=== PATIENT | female | born 1950 | race Caucasian/White ===

== ENCOUNTER 2020-09-27 19:14 | Emergency (ER) | payer BC, MEDICARE, SELFPAY ==
[2020-09-27 19:20] VITALS: BP 135/80; PULSE 87; RESP 17; TEMP 37.2; O2SAT 96; BMI 28.3
[2020-09-27 20:11] LABS: Acetaminophen < 10 ug/mL (10-30); Alanine Aminotransferase 17 IU/L (<35); Albumin 4.2 g/dL (3.5-5.0); Albumin Globulin Ratio 1.3 (1.0-2.8); Alkaline Phosphatase 75 U/L (38-126); Aspartate Aminotransferase 26 IU/L (14-36); BUN Creatinine Ratio 15.8 (6-22); Bilirubin Total 0.3 mg/dL (0.2-1.3); Blood Urea Nitrogen 12 mg/dL (7-17); Carbon Dioxide 24 mmol/L (22-32); Chloride 103 mmol/L (98-107); Estimated Glomerular Filt Rate > 60.0 mL/min (>60); Ethanol (ETOH) 61 mg/dL; Globulin 3.3 g/dL (1.7-4.1); Glucose 93 mg/dL (80-110); HEMOLYSIS < 15 (0-50); Potassium 3.7 mmol/L (3.4-5.1); Salicylate < 1.0 mg/dL (<20); Sodium 136 mmol/L (137-145); Total Protein 7.5 g/dL (6.3-8.2)
[2020-09-27 20:21] LABS: Add Manual Diff / Slide Review NO; Basophils Absolute Auto 100 /uL (0-100); Basophils Percent Auto 1.3 % (0-2); Eosinophils Absolute Auto 100 /uL (0-450); Eosinophils Percent Auto 1.1 % (2-4); Hematocrit 38.7 % (36-46); Hemoglobin 12.7 g/dL (12.0-16.0); Lymphocytes Absolute Auto 4500 /uL (1100-4500); Lymphocytes Percent Auto 48.2 % (25-40); Mean Corpuscular Hemoglobin 29.7 PG (26-34); Monocytes Absolute Auto 500 /uL (0-900); Monocytes Percent Auto 5.5 % (3-14); Neutrophils Absolute Auto 4100 /uL (1500-7000); Neutrophils Percent Auto 43.9 % (50-75); Platelet Count 317 X10^3/uL (150-400); Red Blood Cell Count 4.29 X10^6/uL (4.0-5.2); Red Cell Distribution Width 12.9 % (11.6-14.8); White Blood Cell Count 9.3 X10^3/uL (4.5-11.0)
--- NOTE | 2020-09-27 20:28 | ED_ITS ---
HPI - Psych General Chief Complaint: Psychiatric Symptoms Stated Complaint: suicidal, cutting self Time Seen by Provider: 09/27/20 20:28 Source: patient and family Mode of arrival: Ambulatory History of Present Illness HPI Narrative: Patient is a 70-year-old female with history of alcoholism presenting is with alcohol intoxication and suicidal ideation. She has been sober off and on for the most of 10 years but recently started drinking again about 3 years ago. She was hiding it from her however over the last 1 year she has been unable to hide it in over the last 1 month it has gotten significantly worse. Patient states that she drinks from the moment she wakes up until she passes out. She says everything makes her want to drink warm. Today her is now fed up with it and she is no longer able to hide it is. She had suicidal thoughts and has been having more suicidal thoughts over the last 1 month. Today she took a serrated knife to her left wrist. She has a small superficial laceration to the left. Patient also has a history of pancreatitis. states that she has had some abdominal pain nausea vomiting over the past 5 days. She currently is not experiencing such. She also denies any his thoughts of suicide now. She is feeling better now that she is in the emergency department. complaint: suicidal ideation Related Data Allergies Allergy/AdvReac Type Severity Reaction Status Date / Time No Known Drug Allergies Allergy Verified 09/27/20 19:40 Review of Systems Review of Systems Narrative: GENERAL: Denies chills, fatigue, malaise, fever, sweats, travel HEENT: Denies sinus pain, ear pain, sore throat, difficulty swallowing, neck pain RESPIRATORY: Denies dyspnea, cough, wheezing, hemoptysis, sputum. CARDIOVASCULAR: Denies chest pain, palpitations, orthopnea, edema GASTROINTESTINAL: See HPI : Denies dysuria, frequency, incontinence, hematuria, urinary retention, flank pain. MUSCULOSKELETAL: Denies weakness, joint pain, or bony pain SKIN: No rash, no erythema, no pruritus NEUROLOGIC: Denies weakness, dizziness, headache, numbness, change in speech, confusion PSYCHIATRIC: No concerning psychosocial issues. 12 point review of systems is negative except for those stated above and HPI Patient History Social History Smoking Status: Never smoker Smoking Status: Never smoker alcohol intake frequency: 3 or more drinks per day Alcohol type: hard liquor Substance Use Type: does not use Exam Initial Vital Signs Initial Vital Signs: Vital Signs Temperature 99 F 09/27/20 19:20 Pulse Rate 87 09/27/20 19:20 Respiratory Rate 17 09/27/20 19:20 Blood Pressure 135/80 09/27/20 19:20 Pulse Oximetry 96 09/27/20 19:20 GENERAL: Alert well-appearing [age]-year-old female HEENT: Head atraumatic,EOMI, pupils reactive, face symmetric, moist mucous membranes CARDIOVASCULAR: Regular rate and rhythm without murmurs, rubs or gallops. RESPIRATORY: Breath sounds equal bilaterally, no wheezes rales or rhonchi. ABDOMEN: Soft, nontender. Normoactive bowel sounds all 4 quadrants. No guarding or rebound. EXTREMITIES: Normal range of motion, no clubbing or edema. Neurovascularly intact NEUROLOGICAL: Alert and oriented x4.Normal gait and speech. SKIN: Warm, dry, no laceration, no petechiae, no rashes or lesions. Left wrist superficial laceration scabbed over Course Orders Ordered: ED Orders 09/27/20 19:24 Consult to TRANSPORTATION AGENT - Account Contact Associate Stat 09/27/20 19:52 Acetaminophen Stat Complete Blood Count AUTO DIFF Stat Comprehensive Metabolic Panel Stat Ethanol (ETOH) Stat Free T4, Direct Thyroxine Stat Lipase Stat Salicylate Stat Thyroid Stimulating Hormone Stat 09/27/20 20:25 Urine Drug Screen, Rapid Stat 09/27/20 20:30 COVID19 -Nasal swab/Pre-Proc Stat 09/27/20 21:20 EKG-12 Lead Stat Vital Signs Vital signs: Vital Signs - 8 hr 09/28/20 00:59 Pulse Rate 88 Respiratory Rate 24 Blood Pressure 92/65 Pulse Oximetry 97 MDM - Psych Lab Data Attestation: I reviewed the patient's lab results. Result diagrams: 09/27/20 19:52 09/27/20 19:52 Labs: Lab Results 09/27/20 09/27/20 09/27/20 Range/Units 19:52 19:52 19:52 WBC 9.3 (4.5-11.0) X10^3/uL RBC 4.29 (4.0-5.2) X10^6/uL Hgb 12.7 (12.0-16.0) g/dL Hct 38.7 (36-46) % MCV 90.0 (80-100) fL MCH 29.7 (26-34) PG MCHC 33.0 (30-36) % RDW 12.9 (11.6-14.8) % Plt Count 317 (150-400) X10^3/uL Neut % (Auto) 43.9 L (50-75) % Lymph % (Auto) 48.2 H (25-40) % Gonzales % (Auto) 5.5 (3-14) % Eos % (Auto) 1.1 L (2-4) % Baso % (Auto) 1.3 (0-2) % Neut # (Auto) 4100 (0553-5362) /uL Lymph # (Auto) 4500 (1009-4934) /uL Gonzales # (Auto) 500 (0-900) /uL Eos # (Auto) 100 (0-450) /uL Baso # (Auto) 100 (0-100) /uL Sodium 136 L (137-145) mmol/L Potassium 3.7 (3.4-5.1) mmol/L Chloride 103 (98-107) mmol/L Carbon Dioxide 24 (22-32) mmol/L BUN 12 (7-17) mg/dL Creatinine 0.76 (0.52-1.04) mg/dL Estimated GFR > 60.0 (>60) mL/min BUN/Creatinine Ratio 15.8 (6-22) Glucose 93 (80-110) mg/dL Calcium 10.0 (8.4-10.2) mg/dL Total Bilirubin 0.3 (0.2-1.3) mg/dL AST 26 (14-36) IU/L ALT 17 (<35) IU/L Alkaline Phosphatase 75 (38-126) U/L Total Protein 7.5 (6.3-8.2) g/dL Albumin 4.2 (3.5-5.0) g/dL Globulin 3.3 (1.7-4.1) g/dL Albumin/Globulin Ratio 1.3 (1.0-2.8) Lipase (23-300) U/L TSH 2.12 (0.47-4.68) uIU/mL Free T4 1.12 (0.78-2.19) ng/dL Salicylates < 1.0 (<20) mg/dL U Opiates 300ng/mL cut (Negative) Ur Oxycodone Screen (Negative) Urine Methadone Screen (Negative) Acetaminophen < 10 L (10-30) ug/mL Ur Barbiturates Screen (Negative) U Tricyclic Antidepress (Negative) Ur Phencyclidine Scrn (Negative) Ur Amphetamines Screen (Negative) U Methamphetamines Scrn (Negative) Ur MDMA Scrn (Ecstasy) (Negative) U Benzodiazepines Scrn (Negative) Urine Cocaine Screen (Negative) U Marijuana (THC) Screen (Negative) Ethyl Alcohol 61 H ( - 10) mg/dL SARS-CoV-2 (PCR) (Negative) 09/27/20 09/27/20 09/27/20 Range/Units 19:52 20:25 20:30 WBC (4.5-11.0) X10^3/uL RBC (4.0-5.2) X10^6/uL Hgb (12.0-16.0) g/dL Hct (36-46) % MCV (80-100) fL MCH (26-34) PG MCHC (30-36) % RDW (11.6-14.8) % Plt Count (150-400) X10^3/uL Neut % (Auto) (50-75) % Lymph % (Auto) (25-40) % Gonzales % (Auto) (3-14) % Eos % (Auto) (2-4) % Baso % (Auto) (0-2) % Neut # (Auto) (5302-9992) /uL Lymph # (Auto) (1523-2419) /uL Gonzales # (Auto) (0-900) /uL Eos # (Auto) (0-450) /uL Baso # (Auto) (0-100) /uL Sodium (137-145) mmol/L Potassium (3.4-5.1) mmol/L Chloride (98-107) mmol/L Carbon Dioxide (22-32) mmol/L BUN (7-17) mg/dL Creatinine (0.52-1.04) mg/dL Estimated GFR (>60) mL/min BUN/Creatinine Ratio (6-22) Glucose (80-110) mg/dL Calcium (8.4-10.2) mg/dL Total Bilirubin (0.2-1.3) mg/dL AST (14-36) IU/L ALT (<35) IU/L Alkaline Phosphatase (38-126) U/L Total Protein (6.3-8.2) g/dL Albumin (3.5-5.0) g/dL Globulin (1.7-4.1) g/dL Albumin/Globulin Ratio (1.0-2.8) Lipase 529 H (23-300) U/L TSH (0.47-4.68) uIU/mL Free T4 (0.78-2.19) ng/dL Salicylates (<20) mg/dL U Opiates 300ng/mL cut Negative (Negative) Ur Oxycodone Screen Negative (Negative) Urine Methadone Screen Negative (Negative) Acetaminophen (10-30) ug/mL Ur Barbiturates Screen Negative (Negative) U Tricyclic Antidepress Negative (Negative) Ur Phencyclidine Scrn Negative (Negative) Ur Amphetamines Screen Negative (Negative) U Methamphetamines Scrn Negative (Negative) Ur MDMA Scrn (Ecstasy) Negative (Negative) U Benzodiazepines Scrn Positive H (Negative) Urine Cocaine Screen Negative (Negative) U Marijuana (THC) Screen Negative (Negative) Ethyl Alcohol ( - 10) mg/dL SARS-CoV-2 (PCR) Negative (Negative) Urine Dip Bedside Urine Glucose Negative Bedside Urine Bilirubin - Negative Bedside Urine Ketone - Negative Urine Specific Coleman 1.010 Bedside Urine Occult Blood +/- Bedside Urine pH 6 Bedside Urine Protein - Negative Bedside Urine Urobilinogen - Negative Bedside Urine Nitrite - Negative Bedside Urine Leukocytes - Negative Esterase MDM Narrative Medical decision making narrative: At this time patient is medically cleared. Having suicidal ideations and increased alcohol use . Patient is tolerating oral fluids no vomiting she also says that she has been having diarrhea as well. Vomiting and diarrhea more consistent with gastroenteritis than chronic pancreatitis. Lipase is mildly elevated but she really has no abdominal pain in the emergency department I do not believe this to be clinically relevant. She certainly is at risk for chronic pancreatitis with chronic alcohol use. Social Work has been in to evaluate. She has been accepted at [facility] Discharge Plan Departure Patient Disposition: Xfer Psychiatric Hosp Clinical Impression: Suicidal ideation, Alcohol abuse
--- NOTE | 2020-09-27 20:30 | PC.NURSE ---
Krebs,snacks,water and juice given to pt. Warm blanket given.
--- NOTE | 2020-09-27 20:32 | PC.NURSE ---
Pt ok with spouse to be present. Spouse in room at this time.
[2020-09-27 20:36] LABS: UR Morphine/Opiate cutoff 300 Negative (Negative); Ur Creatinine Normal (Normal); Ur Specific Gravity Normal (Normal); Urine Amphetamines Negative (Negative); Urine Barbiturates Negative (Negative); Urine Benzodiazepines Positive (Negative); Urine Cocaine Negative (Negative); Urine MDMA Negative (Negative); Urine Methamphetamines Negative (Negative); Urine Phencyclidine Negative (Negative); Urine Tetrahydrocannabinol Negative (Negative); Urine pH Normal (Normal)
[2020-09-27 20:37] LABS: Free T4, Direct Thyroxine 1.12 ng/dL (0.78-2.19)
[2020-09-27 20:37] LABS: Urine Methadone Negative (Negative); Urine Oxycodone Negative (Negative); Urine Tricyclic Antidepressant Negative (Negative)
[2020-09-27 20:49] LABS: COVID19 -Nasal RAPID Negative (Negative)
[2020-09-27 20:51] LABS: Thyroid Stimulating Hormone 2.12 uIU/mL (0.47-4.68)
[2020-09-27 20:55] LABS: Lipase 529 U/L (23-300)
--- NOTE | 2020-09-27 21:15 | CM.SWNOTE ---
CLUBHOUSE MANAGER - Market Manager Assessment CLUBHOUSE MANAGER - Market Manager Assessment Start: 09/27/20 20:50 Freq: Status: Active Protocol: Document 09/27/20 20:50 LN (Rec: 09/27/20 21:15 LN [id number]) CLUBHOUSE MANAGER/Market Manager Assessment Time Spent with Patient Start date 09/27/20 Visit Start Time 19:35 End date 09/27/20 Visit End Time 20:40 Total time Care Management spent on 65 patient visit-in minutes Mental Health Screening Include Onset, Duration, Intensity Presenting Problem Patient presents to the ED withdrawing from ETOH and after SA cutting self on wrist with intent to kill self Precipitating Event(s) Patient reports she hates self , hates her job, and cannot stop drinking Patient Strengths Patient is open to treatment and shows insight Current Behavioral Health Provider(s) Patient states she does not Include Facility, Provider, Ph. # have a current provider but is looking for one through her EAP program at work to address SARKIS and MH Psych. Hx Mental Health and Chemical Patient endorses she is Dependency prescribed antidepressants for depression Patient uses ETOH and narcotics Family Hx of Behavioral Abuse Patient and endorse dysfunctional family/ upbringing as child. Psychiatric Hospitalizations (date(s)/ Patient states she was location) hospitalized 3 times when she was younger thirty years ago in [place] and was tied down by leather restraints Psychosocial information & Support Patient is 70 y/o female who Systems resides on [address] when she is not working and in [place] [facility] [place] when she works. Patient has supportive , daughter, family members and friends. 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 Patient discusses senior care in her near critical access hospital and states she is tired of working. Substance Abuse Screening Include Onset, Duration, Intensity Presenting Problem Patient presents to the ED withdrawing from ETOH and after SA cutting self on wrist with intent to kill self Precipitating Event(s) Patient reports she hates self , hates her job, and cannot stop drinking Rehab Facilities? ((Date(s), Location(s) Patient states she went to ) [facility] in [place], [place] 3 years ago and prior to that went to [facility] in [place], [place] twice prior to that History of Withdrawal? Seizures? Patient endorses withdrawal symptoms of shakes and getting ill but denies seizures Longest Period of Sobriety 10 years Legal Concerns Legal Matters - Outstanding Issues None reported Mental Status Orientation (Person/Place/Time) A/Ox4 Stated Mood really fucked up right now Affect (Congruent with Mood?) dysphoric, full range, congruent with mood Thought Content - Specify/Describe Patient denies obsessions, Obsessions, Delusions, Hallucinations delusions, paranoia and hallucinations Thought Processes (Tunipqs-Bnkauias-Mprn circumstantial Fqrqocjv-Geidxzxf-Yoklfkoots- Oupudvvdtmsxym-Yulrsdb-Qxakrhwbdxkq- Thought Blocking) Speech (Phwkyz-Trsx-Ztjigbm-Rapid-Soft- normal Loud-Pressured) Motor (Jysabe-Kyguvkcdr-Zkys-Other) normal, not formally assessed Insight (Qtyx-Kebm-Tlvk/Limited) Fair Judgement (Upye-Rkna-Rsiw/Limited) Poor/limited Impulse Control (Adequate-Impaired) Adequate during assessment Memory (Gkqegqcuu-Lgcwwo-Yqhkxf, Intact Impaired-Intact) Concentration (Intact-Impaired) Intact Attention (Intact-Impaired) Intact Behavior (Appropriate-Inappropriate) Appropriate Risk Assessment Suicidal Ideation (Plan) Yes Homicidal Ideation (Plan) No Comment Patient denies HI. Patient endorses ongoing SI and presents to this ED after SA. Patient endorses ways and means, patient cut wrist with intent to puncture her vein and bleed out. Patient reports SI with intent to cut self a few days ago as well. Intervention Intervention CLUBHOUSE MANAGER enters room and meets with patient and . Patient provides consent for to be present. Patient states she can't quit drinking and has been suicidal for a while. Patient states that she drinks 6-8 drink/shots/airplane bottles of hard liquor a day. Patient states today she had 6 shots of whiskey and a hard root beer, patient states she typically drinks 6-8 airplane bottles of vodka each day. Patient endorses she started drinking when she was a youth and has been struggling with addiction throughout her life. Patient endorses that she has been trying to hide her drinking for the last year and relapsed two years ago. Patient presents as emotional discussing her SI and SARKIS. reports concern of patient being a danger to herself and patient drives under the influence. Patient endorses that she wants to seek treatment. CLUBHOUSE MANAGER discusses dual diagnosis inpatient programs and detox, and medical clearance. Patient states that she was hospitalized for pancreatitis 2 weeks ago. Patient is agreeable to voluntary inpatient behavioral health hospitalization at a dual diagnosis program. CLUBHOUSE MANAGER calls [facility] and it is reported that they have beds available. It is the opinion of this CLUBHOUSE MANAGER that it is appropriate for patient to receive inpatient dual diagnosis hospitalization . CLUBHOUSE MANAGER reviews the above with LEXIS Vyas and ED Provider Dr. Almaguer and both indicate agreement and understanding. Plan RA Plan CLUBHOUSE MANAGER to seek inpatient dual diagnosis inpatient hospitalization when patient is medically clear HALIMA Hollingsworth
[2020-09-28 00:59] VITALS: BP 92/65; PULSE 88; RESP 24; O2SAT 97
--- NOTE | 2020-09-28 14:26 | CM.SWNOTE ---
ROOFING CONTRACTOR Note Patient was transferred to [facility] dual dx treatment unit last night. Last evening ROOFING CONTRACTOR discussed with patient and the option of detox in [place] and the dual diagnosis program at [facility]. ROOFING CONTRACTOR provided information from the website to patient and and they choose to proceed with the bed available at [facility] in this unit. Patient's calls ROOFING CONTRACTOR reports concern that the treatment facility is not treating patient's patient's detox or SARKIS. ROOFING CONTRACTOR discusses the option if patient is not receiving the care she wants and needs she can be d/c'd and take her to detox. Patient's hangs up on ROOFING CONTRACTOR and proceeds to express his frustration with derogatory language. ROOFING CONTRACTOR calls [facility] dual dx unit and it is reported that patient is there and detoxing with med management and treatment goal planning. ROOFING CONTRACTOR informs staff that is upset about patient's treatment and detox regarding patient's SARKIS. ROOFING CONTRACTOR calls back patient's [employer] ( Ph. # [phone]) in efforts to inform of conversation ROOFING CONTRACTOR had with [facility]. Patient continues to call [facility] staff and ROOFING CONTRACTOR incompetent and states that he thought patient would receive alcohol treatment. ROOFING CONTRACTOR confirms that [facility] is a [facility] and this unit focuses on dual dx. Patient states he will take patient to another treatment facility and proceeds to hang up the phone. Misti John MSW
== END 2020-09-28 01:05 ==
PROVIDERS: Emergency Provider Emergency Medicine
DX: R45.851 Suicidal ideations (principal); F10.10 Alcohol abuse, uncomplicated; Y90.3 Blood alcohol level of 60-79 mg/100 ml; Z20.822 Contact with and (suspected) exposure to COVID-19
CPT/HCPCS: 36415; 80053; 80305; 80320; 80329; 81003; 83690; 84439; 84443; 85025; 87635; 93005; 93010; 99284; C9803; G0480

== ENCOUNTER 2021-02-15 14:06 | Emergency (ER) | payer OTHER, MEDICARE, SELFPAY ==
[2021-02-15 14:54] VITALS: BP 126/78; PULSE 93; RESP 18; TEMP 36.4; O2SAT 99; BMI 28.3
[2021-02-15 15:05] LABS: UR Morphine/Opiate cutoff 300 Negative (Negative); Ur Creatinine Normal (Normal); Ur Specific Gravity Normal (Normal); Urine Amphetamines Negative (Negative); Urine Barbiturates Negative (Negative); Urine Benzodiazepines Positive (Negative); Urine Cocaine Negative (Negative); Urine MDMA Negative (Negative); Urine Methadone Negative (Negative); Urine Methamphetamines Negative (Negative); Urine Oxycodone Negative (Negative); Urine Phencyclidine Negative (Negative); Urine Tetrahydrocannabinol Negative (Negative); Urine Tricyclic Antidepressant Negative (Negative); Urine pH Normal (Normal)
--- NOTE | 2021-02-15 15:13 | PC.NURSE ---
pt reports she sliced her wrist with a knife before and had in patient treatment for her alcoholism. she is being seen at [facility],.
[2021-02-15 15:25] LABS: COVID19 -Nasal RAPID Negative (Negative)
[2021-02-15 15:36] LABS: Bacteria Urine Many (>30); Culture Indicated Urine Specimen Cultured; RBC Urine 0-1/HPF (0-5/HPF); WBC Urine 5-10/HPF (0-5/HPF)
[2021-02-15 16:00] LABS: Add Manual Diff / Slide Review NO; Basophils Absolute Auto 100 /uL (0-100); Eosinophils Absolute Auto 100 /uL (0-450); Eosinophils Percent Auto 0.8 % (2-4); Hematocrit 37.3 % (36-46); Hemoglobin 12.4 g/dL (12.0-16.0); Lymphocytes Absolute Auto 2700 /uL (1100-4500); Lymphocytes Percent Auto 32.2 % (25-40); Mean Corpuscular HGB Conc 33.2 % (30-36); Mean Corpuscular Hemoglobin 29.5 PG (26-34); Mean Corpuscular Volume 88.7 fL (80-100); Monocytes Absolute Auto 400 /uL (0-900); Monocytes Percent Auto 5.1 % (3-14); Neutrophils Absolute Auto 5000 /uL (1500-7000); Neutrophils Percent Auto 60.9 % (50-75); Platelet Count 283 X10^3/uL (150-400); Red Blood Cell Count 4.21 X10^6/uL (4.0-5.2); White Blood Cell Count 8.3 X10^3/uL (4.5-11.0)
[2021-02-15 16:17] LABS: Acetaminophen < 10 ug/mL (10-30); Alanine Aminotransferase 13 IU/L (<35); Albumin 4.1 g/dL (3.5-5.0); Albumin Globulin Ratio 1.3 (1.0-2.8); Alkaline Phosphatase 67 U/L (38-126); Aspartate Aminotransferase 24 IU/L (14-36); Bilirubin Total 0.3 mg/dL (0.2-1.3); Blood Urea Nitrogen 16 mg/dL (7-17); Calcium 9.4 mg/dL (8.4-10.2); Carbon Dioxide 27 mmol/L (22-32); Chloride 103 mmol/L (98-107); Estimated Glomerular Filt Rate > 60.0 mL/min (>60); Ethanol (ETOH) 90 mg/dL; Globulin 3.1 g/dL (1.7-4.1); Glucose 93 mg/dL (80-110); HEMOLYSIS < 15 (0-50); Potassium 4.3 mmol/L (3.4-5.1); Salicylate < 1.0 mg/dL (<20); Sodium 138 mmol/L (137-145); Total Protein 7.2 g/dL (6.3-8.2)
[2021-02-15 16:47] LABS: Thyroid Stimulating Hormone 0.846 uIU/mL (0.47-4.68)
--- NOTE | 2021-02-15 17:00 | PC.NURSE ---
pt appears asleep
--- NOTE | 2021-02-15 17:15 | PC.NURSE ---
pt appears asleep, at bedside
--- NOTE | 2021-02-15 17:16 | PC.NURSE ---
ER at bedside, pt marizol
--- NOTE | 2021-02-15 17:23 | ED_ITS ---
HPI - General Adult General Chief complaint: Toxicology Problem Stated complaint: Mental Health Crisis Time Seen by Provider: 02/15/21 15:00 Source: patient Mode of arrival: Family Vehicle Limitations: no limitations History of Present Illness HPI narrative: Patient is a 70-year-old female. Is here with her . Arrived by private vehicle. Is reported by the patient's that she has had a longstanding history of alcohol abuse. Has been in rehab in the past. There was reported that the patient has been drinking today. She states that she becomes very depressed when her finds out that she has been drinking. She did take more than the normal amount of Ativan earlier today. Per her she has been making comments about just going to sleep and not waking up. She has also had a recent stressor of a diagnosis of what is most likely metastatic breast cancer. She is being followed by Oncology for this. Is not currently under treatment is it is still in the diagnosis phase. Upon my evaluation patient denies suicidal ideation. Patient does not want admitted to the hospital. Related Data Allergies Allergy/AdvReac Type Severity Reaction Status Date / Time No Known Drug Allergies Allergy Verified 09/27/20 19:40 Review of Systems Constitutional Constitutional: Denies fever(s) and Denies headache(s) ENT Ears, Nose, Mouth, and Throat: Denies headache(s) Cardiovascular Cardiovascular: Reports system reviewed and no additional complaints, except as documented Respiratory Respiratory: Reports system reviewed and no additional complaints, except as documented Gastrointestinal Gastrointestinal: Reports system reviewed and no additional complaints, except as documented Integumentary/Breasts Skin/Breast: Reports system reviewed and no additional complaints, except as documented Neurologic Neurologic: Denies headache(s) Psychiatric Psychiatric: Reports system reviewed and no additional complaints, except as documented and Reports as per HPI Hematologic/Lymphatic On Anticoagulants: No Patient History Medical History Alcohol abuse Social History Smoking Status: Never smoker Smoking Status: Never smoker alcohol intake frequency: 3 or more drinks per day Alcohol type: hard liquor Substance Use Type: does not use Exam Initial Vital Signs Initial Vital Signs: Vital Signs Temperature 97.6 F 02/15/21 14:54 Pulse Rate 93 H 02/15/21 14:54 Respiratory Rate 18 02/15/21 14:54 Blood Pressure 126/78 02/15/21 14:54 Pulse Oximetry 99 02/15/21 14:54 Const General: cooperative, healthy appearing, comfortable and well developed [facility] Head: normal to inspection and normocephalic Eyes General: appearance normal, both eyes and all related structures Resp Effort & Inspection: normal respiratory effort Cardio Rate: regular rate Skin General: no rashes or lesions noted Neuro General: patient alert, patient awake, patient oriented x3 and moves all extremities Psych Appearance: well kempt Speech and Movement: speech and movement normal Affect: normal affect Attitude: cooperative Thought Content: no homicidality and suicidality Judgment: judgment good Scores GCS [place] coma scale eye opening: Spontaneous [place] coma scale verbal response: Orientated [place] coma scale motor response: Obey commands Abigail coma scale total score: 15 Course Orders Ordered: ED Orders 02/15/21 14:42 COVID19 -Nasal swab/Pre-Proc Stat Urine Culture Stat Urine Drug Screen, Rapid Stat Urine Microscopic Stat 02/15/21 15:48 Acetaminophen Stat Complete Blood Count AUTO DIFF Stat Comprehensive Metabolic Panel Stat Ethanol (ETOH) Stat Free T4, Direct Thyroxine Stat Salicylate Stat Thyroid Stimulating Hormone Stat 02/15/21 15:59 Consult to [facility] [place] - Demand Manager Stat 02/15/21 17:44 Ethanol (ETOH) Stat Vital Signs Vital signs: Vital Signs - 8 hr 02/15/21 14:54 02/15/21 17:49 Temperature 97.6 F Pulse Rate 93 H 83 Respiratory Rate 18 18 Blood Pressure 126/78 118/76 Pulse Oximetry 99 97 Medical Decision Making Lab Data Lab results reviewed: Yes I reviewed the patient's lab results. Result diagrams: 02/15/21 15:48 02/15/21 15:48 Labs: Lab Results 02/15/21 02/15/21 02/15/21 Range/Units 14:42 14:42 14:42 WBC (4.5-11.0) X10^3/uL RBC (4.0-5.2) X10^6/uL Hgb (12.0-16.0) g/dL Hct (36-46) % MCV (80-100) fL MCH (26-34) PG MCHC (30-36) % RDW (11.6-14.8) % Plt Count (150-400) X10^3/uL Neut % (Auto) (50-75) % Lymph % (Auto) (25-40) % Loup % (Auto) (3-14) % Eos % (Auto) (2-4) % Baso % (Auto) (0-2) % Neut # (Auto) (0285-0381) /uL Lymph # (Auto) (5882-1446) /uL Loup # (Auto) (0-900) /uL Eos # (Auto) (0-450) /uL Baso # (Auto) (0-100) /uL Sodium (137-145) mmol/L Potassium (3.4-5.1) mmol/L Chloride (98-107) mmol/L Carbon Dioxide (22-32) mmol/L BUN (7-17) mg/dL Creatinine (0.52-1.04) mg/dL Estimated GFR (>60) mL/min BUN/Creatinine Ratio (6-22) Glucose (80-110) mg/dL Calcium (8.4-10.2) mg/dL Total Bilirubin (0.2-1.3) mg/dL AST (14-36) IU/L ALT (<35) IU/L Alkaline Phosphatase (38-126) U/L Total Protein (6.3-8.2) g/dL Albumin (3.5-5.0) g/dL Globulin (1.7-4.1) g/dL Albumin/Globulin Ratio (1.0-2.8) TSH (0.47-4.68) uIU/mL Free T4 (0.78-2.19) ng/dL Urine RBC 0-1/hpf (0-5/HPF) Urine WBC 5-10/hpf H (0-5/HPF) Urine Bacteria Many (>30) H (None) Ur Culture Indicated? Specimen cultured Salicylates (<20) mg/dL U Opiates 300ng/mL cut Negative (Negative) Ur Oxycodone Screen Negative (Negative) Urine Methadone Screen Negative (Negative) Acetaminophen (10-30) ug/mL Ur Barbiturates Screen Negative (Negative) U Tricyclic Antidepress Negative (Negative) Ur Phencyclidine Scrn Negative (Negative) Ur Amphetamines Screen Negative (Negative) U Methamphetamines Scrn Negative (Negative) Ur MDMA Scrn (Ecstasy) Negative (Negative) U Benzodiazepines Scrn Positive H (Negative) Urine Cocaine Screen Negative (Negative) U Marijuana (THC) Screen Negative (Negative) Ethyl Alcohol ( - 10) mg/dL SARS-CoV-2 (PCR) Negative (Negative) 02/15/21 02/15/21 02/15/21 Range/Units 15:48 15:48 15:48 WBC 8.3 (4.5-11.0) X10^3/uL RBC 4.21 (4.0-5.2) X10^6/uL Hgb 12.4 (12.0-16.0) g/dL Hct 37.3 (36-46) % MCV 88.7 (80-100) fL MCH 29.5 (26-34) PG MCHC 33.2 (30-36) % RDW 13.0 (11.6-14.8) % Plt Count 283 (150-400) X10^3/uL Neut % (Auto) 60.9 (50-75) % Lymph % (Auto) 32.2 (25-40) % Loup % (Auto) 5.1 (3-14) % Eos % (Auto) 0.8 L (2-4) % Baso % (Auto) 1.0 (0-2) % Neut # (Auto) 5000 (5306-6960) /uL Lymph # (Auto) 2700 (3423-8857) /uL Loup # (Auto) 400 (0-900) /uL Eos # (Auto) 100 (0-450) /uL Baso # (Auto) 100 (0-100) /uL Sodium 138 (137-145) mmol/L Potassium 4.3 (3.4-5.1) mmol/L Chloride 103 (98-107) mmol/L Carbon Dioxide 27 (22-32) mmol/L BUN 16 (7-17) mg/dL Creatinine 0.84 (0.52-1.04) mg/dL Estimated GFR > 60.0 (>60) mL/min BUN/Creatinine Ratio 19.0 (6-22) Glucose 93 (80-110) mg/dL Calcium 9.4 (8.4-10.2) mg/dL Total Bilirubin 0.3 (0.2-1.3) mg/dL AST 24 (14-36) IU/L ALT 13 (<35) IU/L Alkaline Phosphatase 67 (38-126) U/L Total Protein 7.2 (6.3-8.2) g/dL Albumin 4.1 (3.5-5.0) g/dL Globulin 3.1 (1.7-4.1) g/dL Albumin/Globulin Ratio 1.3 (1.0-2.8) TSH 0.846 (0.47-4.68) uIU/mL Free T4 1.10 (0.78-2.19) ng/dL Urine RBC (0-5/HPF) Urine WBC (0-5/HPF) Urine Bacteria (None) Ur Culture Indicated? Salicylates < 1.0 (<20) mg/dL U Opiates 300ng/mL cut (Negative) Ur Oxycodone Screen (Negative) Urine Methadone Screen (Negative) Acetaminophen < 10 L (10-30) ug/mL Ur Barbiturates Screen (Negative) U Tricyclic Antidepress (Negative) Ur Phencyclidine Scrn (Negative) Ur Amphetamines Screen (Negative) U Methamphetamines Scrn (Negative) Ur MDMA Scrn (Ecstasy) (Negative) U Benzodiazepines Scrn (Negative) Urine Cocaine Screen (Negative) U Marijuana (THC) Screen (Negative) Ethyl Alcohol 90 H ( - 10) mg/dL SARS-CoV-2 (PCR) (Negative) 02/15/21 Range/Units 17:44 WBC (4.5-11.0) X10^3/uL RBC (4.0-5.2) X10^6/uL Hgb (12.0-16.0) g/dL Hct (36-46) % MCV (80-100) fL MCH (26-34) PG MCHC (30-36) % RDW (11.6-14.8) % Plt Count (150-400) X10^3/uL Neut % (Auto) (50-75) % Lymph % (Auto) (25-40) % Loup % (Auto) (3-14) % Eos % (Auto) (2-4) % Baso % (Auto) (0-2) % Neut # (Auto) (0185-9490) /uL Lymph # (Auto) (1142-6864) /uL Loup # (Auto) (0-900) /uL Eos # (Auto) (0-450) /uL Baso # (Auto) (0-100) /uL Sodium (137-145) mmol/L Potassium (3.4-5.1) mmol/L Chloride (98-107) mmol/L Carbon Dioxide (22-32) mmol/L BUN (7-17) mg/dL Creatinine (0.52-1.04) mg/dL Estimated GFR (>60) mL/min BUN/Creatinine Ratio (6-22) Glucose (80-110) mg/dL Calcium (8.4-10.2) mg/dL Total Bilirubin (0.2-1.3) mg/dL AST (14-36) IU/L ALT (<35) IU/L Alkaline Phosphatase (38-126) U/L Total Protein (6.3-8.2) g/dL Albumin (3.5-5.0) g/dL Globulin (1.7-4.1) g/dL Albumin/Globulin Ratio (1.0-2.8) TSH (0.47-4.68) uIU/mL Free T4 (0.78-2.19) ng/dL Urine RBC (0-5/HPF) Urine WBC (0-5/HPF) Urine Bacteria (None) Ur Culture Indicated? Salicylates (<20) mg/dL U Opiates 300ng/mL cut (Negative) Ur Oxycodone Screen (Negative) Urine Methadone Screen (Negative) Acetaminophen (10-30) ug/mL Ur Barbiturates Screen (Negative) U Tricyclic Antidepress (Negative) Ur Phencyclidine Scrn (Negative) Ur Amphetamines Screen (Negative) U Methamphetamines Scrn (Negative) Ur MDMA Scrn (Ecstasy) (Negative) U Benzodiazepines Scrn (Negative) Urine Cocaine Screen (Negative) U Marijuana (THC) Screen (Negative) Ethyl Alcohol 54 H ( - 10) mg/dL SARS-CoV-2 (PCR) (Negative) MDM Narrative Medical decision making narrative: Patient is below the legal limit for alcohol. She denies any SI or HI. She does not want admitted to the hospital either for her alcohol use nor for her mental health. Do not feel that the patient meets criteria for an involuntary admission. Patient's okay with taking the patient home. They have set up already establish for follow-up both with mental health and also her Oncology. They were given return precautions. I do feel that patient has capacity to make decisions. Both patient and expressed understanding and agreement this plan. Discharge Plan Departure Patient Disposition: Home Clinical Impression: Alcoholic intoxication Instructions: DI for Alcohol Use Disorder Activity Restrictions/Additional Instructions: No driving for the next 24 hours or in the future if you drink alcohol. Take all of your medications as directed. Keep all of your scheduled medical appointments. Return to the emergency department for any new or worsening symptoms
--- NOTE | 2021-02-15 17:38 | PC.NURSE ---
Assisted pt to restroom. Offered water, pt declined. Warm blankets given. Laying on stretcher talking with sitter calmly.
--- NOTE | 2021-02-15 17:41 | PC.NURSE ---
Lab at bedside drawing blood, pt calm and quietly talking with staff. back at bedside after stepping out for a phone call
[2021-02-15 17:49] VITALS: BP 118/76; PULSE 83; RESP 18; O2SAT 97
--- NOTE | 2021-02-15 18:07 | PC.NURSE ---
Assited pt to restroom again, pt began to get dressed and wanting to leave. offered fluids, pt declined. offered warm blanket, pt accepted and back on stretcher.
[2021-02-15 18:13] LABS: Ethanol (ETOH) 54 mg/dL
--- NOTE | 2021-02-15 18:16 | PC.NURSE ---
Patient and are very heartbroken and confused what to do next with the patients Breast Cancer diagnosis. Stage 4? And also how to deal with drinking and taking pills. [employer] is off to get a RN to help talk with patient and .
--- NOTE | 2021-02-15 18:21 | PC.NURSE ---
pt tearful and wanting to go home. at bedside talking with patient about her addictions and at a loss of what to do.
--- NOTE | 2021-02-15 18:22 | PC.NURSE ---
Patients is showing patient how she was reacting early (at some point, unknown time) from a phone recording.
--- NOTE | 2021-02-15 18:28 | PC.NURSE ---
Advised by ORTIZ patrick that pt's has returned to her room and he is showing the patient videos of herself when she is intoxicated and misbehaving towards him and others. I entered the room to engage the patient and meet the . I asked what she was watching on the cell phone / smartphone. He said she needs to see this and I could see the patient was upset. I stated it would be best if this didn't occur at this time and the stated are you a certified psychiatric nurse? You are a little late to the show MD advised.
--- NOTE | 2021-02-15 18:29 | PC.NURSE ---
at bedside asking staff about concerns on next step. stated; What am I suppose to do when we leave here and she asks for her Ativan bottle? Do I just give it to her and let her drink it down with alcohol? I cant be with her 24-7.
--- NOTE | 2021-02-15 18:30 | PC.NURSE ---
is still with the patient. Not sure if the called the daughter or the daughter called the patients , patients seems upset talking with the daughter about the breast cancer diagnosis and getting help for drinking.
--- NOTE | 2021-02-15 18:46 | PC.NURSE ---
Doctor came in to speak with the patient and . Decided on D/C from the ER because patient and has a plan. patient then removed the IV herself once Dr said she could leave and left the room. I came in the room to check on her. She handed me the IV. I let the RN know she took out the IV. (Patient is a RN) and I looked for blood dripping and ready to cover the spot where the IV was in. No dripping. RN came with D/C paper work. looked around the room before leaving to make sure his didn't cause any damage. (He is a line assembly utility worker). They left peacefully
== END 2021-02-15 18:45 | disposition home or self-care (01) ==
PROVIDERS: Emergency Provider Emergency Medicine
DX: F10.129 Alcohol abuse with intoxication, unspecified (principal); Y90.4 Blood alcohol level of 80-99 mg/100 ml; Z20.822 Contact with and (suspected) exposure to COVID-19
CPT/HCPCS: 36415; 80053; 80305; 80320; 80329; 81015; 84439; 84443; 85025; 87077; 87086; 87186; 87635; 99284; C9803; G0480